=== PATIENT | female | born 1995 | race Caucasian/White ===

== ENCOUNTER → 2019-03-16 | Outpatient (CLI) | payer OTHER | END | disposition home or self-care (01) | LOC: US 03-02 13:00 | DX: Z34.81 Encounter for supervision of other normal pregnancy, first trimester (principal); Z3A.09 9 weeks gestation of pregnancy ==

== ENCOUNTER → 2019-04-24 | Outpatient (CLI) | payer OTHER | END | disposition home or self-care (01) | LOC: US 15:00 | DX: Z34.82 Encounter for supervision of other normal pregnancy, second trimester (principal); Z3A.19 19 weeks gestation of pregnancy ==

== ENCOUNTER 2019-06-19 11:57 | Emergency (ER) | payer OTHER ==
[~2019-06-19] VITALS: Ht 154.9 cm; Wt 60.8 kg
[2019-06-19 12:32] LABS: BILIRUBIN NEGATIVE (NEGATIVE); BLOOD NEGATIVE (NEGATIVE); CLARITY CLEAR (CLEAR); COLOR STRAW (YELLOW); GLUCOSE NEGATIVE (NEGATIVE); KETONE NEGATIVE (NEGATIVE); LEUKO ESTERASE NEGATIVE (NEGATIVE); NITRITE NEGATIVE (NEGATIVE); SPECIFIC GRAVITY 1.005 (1.005-1.030); UROBILINOGEN 0.2 E.U./dl (0.2-1.0)
[2019-06-19 12:33] LABS: BACTERIA 1+
[2019-06-19] MEDS ORDERED: REGLAN10 M1 PO (12:46)
== END 2019-06-19 13:16 | disposition home or self-care (01) ==
LOC: ED 11:57
PROVIDERS: Nurse Practitioner Family
DX: O99.612 Diseases of the digestive system complicating pregnancy, second trimester (principal); A08.4 Viral intestinal infection, unspecified; K92.89 Other specified diseases of the digestive system; Z3A.27 27 weeks gestation of pregnancy

== ENCOUNTER → 2019-07-22 | Outpatient (CLI) | payer OTHER ==
[~2019-07-22] MED LIST: REGLAN10 M1 PO
== END | disposition home or self-care (01) ==
LOC: US 07-04 10:30
DX: Z34.82 Encounter for supervision of other normal pregnancy, second trimester (principal); Z3A.31 31 weeks gestation of pregnancy

== ENCOUNTER → 2019-08-10 | Outpatient (CLI) | payer OTHER | END | disposition home or self-care (01) | LOC: US 08-07 10:30 | DX: Z34.82 Encounter for supervision of other normal pregnancy, second trimester (principal); Z3A.34 34 weeks gestation of pregnancy ==

== ENCOUNTER → 2019-12-15 | Outpatient (CLI) | payer OTHER | END | disposition home or self-care (01) | LOC: COVID19 15:00 | PROVIDERS: ATTEND Family Medicine | DX: Z20.828 Contact with and (suspected) exposure to other viral communicable diseases (principal) ==

== ENCOUNTER → 2020-02-15 | Outpatient (CLI) | payer BC, OTHER | END | disposition home or self-care (01) | LOC: COVID19 10:51 | PROVIDERS: ATTEND Family Medicine | DX: Z20.828 Contact with and (suspected) exposure to other viral communicable diseases (principal) ==